=== PATIENT | female | born 1985 | race Caucasian/White ===

== ENCOUNTER → 2016-05-07 | Outpatient (CLI) | payer BC ==
--- NOTE | 2016-05-07 21:34 | REP ---
Clinical: Anatomical evaluation. Comparison: 04/09/2016 . Findings: Examination demonstrates a single live intrauterine in cephalic presentation. motion is identified by technologist. Placenta is noted anteriorly and grade 0 without evidence for placenta previa or abruption. Amniotic fluid volume is normal. Cervix measures 4.9 cm in length and appears closed. No evidence for nuchal cord. Gestational age by LMP 24 weeks 0 days with PEDRO 08/27/2016 . Gestational age by current measurements 23 weeks 6 days with PEDRO 08/28/2016 . FHR equals 153 of beats per minute. Estimated weight 716 grams ( 63rd of percentile). Anatomical assessment demonstrates normal structures including cranium, choroid plexus, cavum, cerebellum/posterior fossa, facial features, lungs, four-chamber heart/ventricular outflow tracts, diaphragm, stomach, cord insertion/three-vessel cord, kidneys/bladder, and extremities. Limited evaluation of the spine again noted. Impression: Single live intrauterine in cephalic presentation demonstrating appropriate interval growth. Incomplete evaluation of the spine again noted. Remainder of the anatomical assessment is complete and normal. Signed by Reji Hawk MD 05/07/2016 09:25 P
== END ==
LOC: M SMT 14:54
PROVIDERS: ATTEND Advanced Practice Midwife
DX: Z34.82 Encounter for supervision of other normal pregnancy, second trimester (principal)

== ENCOUNTER → 2016-05-18 | Outpatient (CLI) | payer BC ==
--- NOTE | 2016-05-18 13:51 | REP ---
OB ULTRASOUND: Real-time sonographic evaluation of the gravid uterus is performed. There is a single living intrauterine gestation with an estimated gestational age of 25 weeks 4 days, EDC 08/27/2016. Today's measurement indicate appropriate growth. Biometry and Growth: BPD 64 mm = 25 weeks 5 days, 62nd percentile HC 235 mm = 25 weeks 4 days, 50th percentile AC 207 mm = 25 weeks 2 days, 43rd percentile FL 48 mm = 26 weeks 0 days, 59th percentile HC/AC ratio 1.14 within normal range. Estimated weight 827 grams, 42nd percentile. SEEN/GROSSLY UNREMARKABLE Lateral ventricles No Posterior fossa Yes Upper lip Yes Four-chamber heart No LVOT No RVOT No Stomach Yes Cord insertion Yes Three vessel cord Yes Kidneys Yes Bladder Yes Spine Yes Cervical length: Closed and measures 5.2 cm in length. heart rate: 169 beats per minute. position: Vertex. Placenta: Posterior and grade 1 with no previa or abruption. Amniotic fluid: Within normal limits. Nuchal cord cannot be excluded. Signed by Paramjit Thapa MD 05/18/2016 04:28 P
== END ==
LOC: M RAD 10:21
PROVIDERS: ATTEND Obstetrics & Gynecology
DX: Z34.82 Encounter for supervision of other normal pregnancy, second trimester (principal)

== ENCOUNTER → 2016-05-21 | Outpatient (CLI) | payer BC ==
--- NOTE | 2016-05-21 15:23 | REP ---
Left upper quadrant ultrasound: History: Left upper quadrant pain. 26 weeks . Findings: Scanning in the left upper quadrant of the abdomen demonstrates normal sized homogeneous spleen. This measures 12.1 x 11.6 x 5.7 cm. No splenic lesion is seen. There is no evidence of ascites. A normal left kidney is seen measuring 11.4 x 6.9 x 5.1 cm. No hydronephrosis is seen. heart rate is documented at 152 beats per minute during this exam. Impression: Negative left upper quadrant sonogram. No splenic or left renal abnormality. Signed by Cale Yan MD 05/21/2016 04:47 P
== END ==
LOC: M RAD 14:37
PROVIDERS: ATTEND Specialist
DX: R16.1 Splenomegaly, not elsewhere classified (principal)

== ENCOUNTER → 2016-05-25 | Outpatient (CLI) | payer BC ==
[2016-05-25 13:37] LABS: MEAN CORPUSCULAR HEMOGLOBIN 29.8 pg (27.0-33.0); MEAN CORPUSCULAR HGB CONC 33.3 g/dl (32.0-36.5); MEAN CORPUSCULAR VOLUME 89.3 fl (80.0-96.0); RED CELL DISTRIBUTION WIDTH 13.1 % (11.5-14.5); WHITE BLOOD COUNT 11.5 K/mm3 (4.0-10.0)
== END ==
LOC: M WUC 09:24
PROVIDERS: ATTEND Obstetrics & Gynecology
DX: Z34.82 Encounter for supervision of other normal pregnancy, second trimester (principal)

== ENCOUNTER → 2016-08-02 | Outpatient (REF) | payer BC | LOC: M LAB REF 12:00 | PROVIDERS: ATTEND Advanced Practice Midwife | DX: Z34.83 Encounter for supervision of other normal pregnancy, third trimester (principal) ==

== ENCOUNTER 2016-08-15 16:21 | Inpatient (IN) | payer BC ==
[~2016-08-15] VITALS: Ht 162.6 cm; Wt 117.0 kg
[2016-08-15 17:20] VITALS: BP 146/85
[2016-08-15] MEDS ORDERED: AMPICILLIN SOD 2 GM in D5W MINI-BAG PLUS 100 ML IV STA (17:37)
[2016-08-15 17:38] VITALS: BP 126/73
[2016-08-15] MEDS ORDERED: miSOPROStol 50 MCG 1/2 TAB (S0191) PO SCH (17:45)
[2016-08-15 17:53] VITALS: BP 132/75
[2016-08-15 18:33] LABS: MEAN CORPUSCULAR HEMOGLOBIN 26.7 pg (27.0-33.0); MEAN CORPUSCULAR HGB CONC 33.4 g/dl (32.0-36.5); MEAN CORPUSCULAR VOLUME 79.8 fl (80.0-96.0); WHITE BLOOD COUNT 12.2 K/mm3 (4.0-10.0)
[2016-08-15 18:39] VITALS: BP 140/79
[2016-08-15 18:55] LABS: ALT/SGPT 17 U/L (12-78); AST/SGOT 17 U/L (15-37); BILIRUBIN,TOTAL 0.6 MG/DL (0.2-1.0); CREATININE FOR GFR 0.57 MG/DL (0.55-1.02); GLOMERULAR FILTRATION RATE > 60.0 (>60); URIC ACID 2.8 MG/DL (2.6-6.0)
[2016-08-15] MEDS ORDERED: LR 1,000 ML IV SCH (22:10)
[2016-08-15] MEDS ORDERED: OXYTOCIN DRIP 30 UNITS in APPROPRIATE DILUENT 1 EA IV SCH (22:50)
[2016-08-15] MEDS ORDERED: FENTANYL 2MCG/ML ROPIVACAINE 0.2% IN 0.9% NACL 200ML IVBAG As Ordered ONE (23:36)
[2016-08-16] VITALS (29 sets, daily range): BP systolic 121–159; BP diastolic 58–83
[2016-08-16] MEDS ORDERED: REFRIGERATOR IV KEYS XX PRN (00:30)
[2016-08-16] MEDS ORDERED: EPIDURAL COMMENT XX SCH (00:30)
[2016-08-16] MEDS ORDERED: NALOXONE INJ 0.4 MG/1 ML VIAL (J2310) IV PRN (00:30)
[2016-08-16] MEDS ORDERED: ePHEDrine SULFATE 25 MG/5 ML(5MG/ML) SYRINGE IV PRN (00:30)
[2016-08-16] MEDS ORDERED: ONDANSETRON 4MG/2ML VIAL (J2405) IV PRN ×2 (00:30→13:45)
[2016-08-16] MEDS ORDERED: FENTANYL/ROPIVACAINE/NACL BAG 200 ML EPIDURAL SCH (00:30)
[2016-08-16] MEDS ORDERED: diphenhydrAMINE INJ 50MG/ML VIAL (J1200) IV PRN (00:30)
[2016-08-16] MEDS ORDERED: EPIDURAL/PCA KEYS XX PRN (00:30)
--- NOTE | 2016-08-16 00:44 | HPE ---
DATE OF ADMISSION: 08/15/2016 REASON FOR ADMISSION: Induction of labor for gestational hypertension. HISTORY OF PRESENT ILLNESS: Mrs. Huitron is a 31-year-old, 2, para 1 who presented at 38 weeks 2 days estimated gestational age by last menstrual period confirmed by first-trimester ultrasound for induction of labor. Mrs. Huitron initially presented to routine appointment this afternoon and was noted to have elevated blood pressure with serial repeat. Initial blood pressure was 152/88 followed by several blood pressures of 140s over 80s to 90s. She was sent to labor and delivery for further evaluation, at which time she continued to have elevated blood pressures and met diagnosis for gestational hypertension. She denied any persistent headaches, abdominal pain, or visual changes along with vaginal bleeding, leakage of fluid, or regular-pattern contractions. Her course had otherwise been uncomplicated. She initiated care in the first trimester and has been appropriate throughout. PAST MEDICAL HISTORY: None. PAST SURGICAL HISTORY: None. PAST OBSTETRICAL HISTORY: She is a 2, para 1. She has had one vaginal delivery, proven to 8 pounds. That was complicated also with gestational hypertension. MEDICATIONS: Include vitamins. ALLERGIES: She has no known drug allergies. SOCIAL HISTORY: Denies any alcohol, tobacco, or drug use during her . PHYSICAL EXAMINATION: VITAL SIGNS: Blood pressure 146/85. She is afebrile. She has a category 1 heart rate tracing. GENERAL APPEARANCE: Is well appearing in no acute distress. LUNGS: Clear to auscultation bilaterally. CARDIOVASCULAR: Heart regular rate and rhythm. ABDOMEN: Soft, gravid, nontender. Estimated weight (EFW) 3600 grams. Her cervical exam: She was 4 cm dilated, 50% effaced, -3 station. LABORATORY DATA: Blood type is A positive. Antibody screen is negative. Rubella is immune. RPR is nonreactive. Hepatitis surface antigen is negative. HIV is negative. Hepatitis C was nonreactive. Chlamydia and gonorrhea screens were negative. She has a normal 1-hour Glucola of 144. She is group B streptococcus (GBS) positive. ASSESSMENT: 1. Mrs. Huitron is a 31-year-old, 2, para 1, at 38 weeks 2 days estimated gestational age with gestational hypertension. 2. Reassuring status. 3. Group B streptococcus (GBS) positive. PLAN: 1. Admit to labor and delivery. Complete blood count (CBC), rapid plasma reagin (RPR), and type and screen, pre-eclamptic panel. 2. Patient thoroughly counseled in regard to her diagnosis. Have discussed management options as well as plan for induction of labor. I discussed medications as well as procedures used in labor and delivery. She has also been verbally consented for emergency surgery, blood products, and anesthesia. After discussion, the couple has decided to proceed with admission, plan of care. 3. Will initiate her induction with 50 mcg of oral misoprostol. 4. Antibiotics for GBS-positive status.
[2016-08-16] MEDS: AMPICILLIN SOD 1 GM in D5W MINI-BAG PLUS 50 ML IV SCH ×2 (07:18→11:18)
[2016-08-16] MEDS ORDERED: ACETAMINOPHEN 500 MG TAB PO PRN (07:45)
[2016-08-16] MEDS: PRENATAL VITAMIN TAB PO SCH (09:00)
[2016-08-16] MEDS ORDERED: OXYTOCIN DRIP 30 UNITS in APPROPRIATE DILUENT 1 EA IV ONE (13:45)
[2016-08-16] MEDS ORDERED: MEASLES,MUMPS,RUBELLA VACCINE INJ (MMR-II) (90707) SC SCH (13:45)
[2016-08-16] MEDS ORDERED: RHOGAM 300 MCG (1500 IU) INJ (J2790) IM SCH (13:45)
[2016-08-16] MEDS ORDERED: DIBUCAINE 1% OINTMENT 30GM TOP PRN (13:45)
[2016-08-16] MEDS ORDERED: METHYLERGONOVINE MALEATE 0.2 MG TAB PO PRN (13:45)
--- NOTE | 2016-08-16 14:19 | DN ---
DATE: 08/16/2016 PREDELIVERY DIAGNOSIS: 38 plus weeks, labor. POSTDELIVERY DIAGNOSIS: Delivered. PROCEDURE: Spontaneous vaginal delivery. COKE BURNER: Dr. Hari Mchugh. ANESTHESIA: Epidural. ESTIMATED BLOOD LOSS: 500 mL. FINDINGS: An 8 pound, 13 ounce male infant with scores of 8 and 9. DELIVERY SUMMARY: After a short second stage consisting of one push, the patient had spontaneous delivery of an 8 pound, 13 ounce male with scores 8 and 9 under epidural anesthesia. There was no nuchal cord. The shoulders delivered with ease. Infant cried spontaneously and was handed to the mother. The cord was double clamped and cut. After a 45-minute third stage, the placenta was still not delivered and manual extraction of the placenta was performed without difficulty. The placenta was inspected and appeared to be intact. The patient received IV pitocin immediately after delivery of the placenta. A second-degree perineal laceration was repaired with 3-0 chromic in the usual fashion. Sponge and needle counts were correct.
[2016-08-16] MEDS: IBUPROFEN 600 MG TAB PO PRN (14:48)
[2016-08-16] MEDS: ACETAMINOPHEN 500 MG TAB PO PRN (19:45)
[2016-08-16] MEDS: DOCUSATE SODIUM 100 MG CAP PO PRN (19:45)
[2016-08-17 01:00] VITALS: BP 130/68
[2016-08-17] MEDS: IBUPROFEN 600 MG TAB PO PRN ×3 (02:33→19:58)
[2016-08-17 05:54] VITALS: BP 113/66
[2016-08-17] MEDS: PRENATAL VITAMIN TAB PO SCH (08:45)
[2016-08-17 18:20] VITALS: BP 145/71
[2016-08-17] MEDS: ACETAMINOPHEN 500 MG TAB PO PRN (23:06)
[2016-08-17] MEDS: DOCUSATE SODIUM 100 MG CAP PO PRN (23:12)
[2016-08-18] MEDS: IBUPROFEN 600 MG TAB PO PRN (06:26)
[2016-08-18 07:03] VITALS: BP 135/90
[2016-08-18] MEDS: PRENATAL VITAMIN TAB PO SCH (09:33)
[2016-08-18] MEDS: ACETAMINOPHEN 500 MG TAB PO PRN (09:34)
[2016-08-18] MEDS ORDERED: PRENTAB9 PO (12:30)
[2016-08-18] MEDS ORDERED: IBUP-1114 PO (12:30)
[2016-08-18] MEDS ORDERED: ACET50TA PO (12:30)
== END 2016-08-18 15:00 | disposition home or self-care (01) | DRG 560 ==
LOC: M LDI 16:21 → M OBS 08-16 15:08
PROVIDERS: ADMIT Obstetrics & Gynecology; ATTEND Obstetrics & Gynecology
PROC: 3E0D7GC Introduction of Other Therapeutic Substance into Mouth and Pharynx, Via Natural or Artificial Opening (ICD-10-PCS; 2016-08-15)
PROC: 10E0XZZ Delivery of Products of Conception, External Approach (ICD-10-PCS; principal; 2016-08-16)
PROC: 0KQM0ZZ Repair Perineum Muscle, Open Approach (ICD-10-PCS; 2016-08-16)
PROC: 10907ZC Drainage of Amniotic Fluid, Therapeutic from Products of Conception, Via Natural or Artificial Opening (ICD-10-PCS; 2016-08-16)
DX: O13.4 Gestational [pregnancy-induced] hypertension without significant proteinuria, complicating childbirth (principal); O99.824 Streptococcus B carrier state complicating childbirth; Z37.0 Single live birth; Z3A.38 38 weeks gestation of pregnancy; Z79.899 Other long term (current) drug therapy; O70.1 Second degree perineal laceration during delivery

== ENCOUNTER → 2016-09-12 | Outpatient (CLI) | payer BC ==
[~2016-09-12] MED LIST: ACET50TA PO; IBUP-1114 PO; PRENTAB9 PO
[2016-09-12 18:36] LABS: BASO % 0.5 % (0.0-1.0); EOS # 0.2 K/mm3 (0.0-0.50); EOS % 1.8 % (0.0-3.0); LARGE UNSTAINED CELL # 0.2 K/mm3 (0.0-0.4); LARGE UNSTAINED CELL % 2.6 % (0.0-4.0); LYMPH % 29.8 % (24.0-44.0); MEAN CORPUSCULAR HGB CONC 31.1 g/dl (32.0-36.5); MEAN CORPUSCULAR VOLUME 80.5 fl (80.0-96.0); MONO # 0.6 K/mm3 (0.0-0.8); MONO % 6.9 % (0.0-5.0); NEUTROPHILS # 5.4 K/mm3 (1.8-7.7); NEUTROPHILS % 58.4 % (36.0-66.0); PLATELET COUNT, AUTOMATED 336 k/mm3 (150-450); RED CELL DISTRIBUTION WIDTH 15.4 % (11.5-14.5)
[2016-09-12 18:49] LABS: ALBUMIN 3.8 GM/DL (3.2-5.2); ALBUMIN/GLOBULIN RATIO 0.95 (1.00-1.93); BILIRUBIN,DIRECT 0.2 MG/DL (0.0-0.2); BILIRUBIN,TOTAL 0.8 MG/DL (0.2-1.0); TOTAL PROTEIN 7.8 GM/DL (6.4-8.2)
[2016-09-13 15:34] LABS: WHITE BLOOD COUNT 9.2 K/mm3 (4.0-10.0)
== END ==
LOC: M SMT 14:44
PROVIDERS: ATTEND Specialist
DX: K80.00 Calculus of gallbladder with acute cholecystitis without obstruction (principal)

== ENCOUNTER → 2016-09-13 | Outpatient (CLI) | payer BC ==
--- NOTE | 2016-09-13 08:40 | REP ---
Clinical: Cholelithiasis. Technique: Real time keyes scale ultrasound examination using curved array transducer. Findings: Liver and pancreas are relatively normal in contour, size, echogenicity. Incidental note is made of a 1 cm hemangioma in the right lobe of the liver. The gallbladder demonstrates multiple gallstones without wall thickening or pericholecystic fluid. However a positive sonographic Garcia's sign was elicited. No evidence for biliary ductal dilatation and the common bile duct measures 5.9 mm diameter. The right kidney is normal in reniform shape without hydronephrosis and measures 11.6 x 5.8 x 4.2 cm. No ascites. Impression: 1. Cholelithiasis with sonographic Garcia's sign. No biliary ductal dilatation. Clinical correlation is recommended. 2. 1 cm hepatic hemangioma. Signed by Reji Hawk MD 09/13/2016 08:32 A
== END ==
LOC: M RAD 07:16
PROVIDERS: ATTEND Specialist
DX: K80.00 Calculus of gallbladder with acute cholecystitis without obstruction (principal); D18.00 Hemangioma unspecified site

== ENCOUNTER 2016-09-29 03:02 | Observation (INO) | payer BC ==
[~2016-09-29] VITALS: Ht 162.6 cm; Wt 99.3 kg
[2016-09-29] MEDS ORDERED: NS 1,000 ML IV ONE ×2 (03:30→06:30)
[2016-09-29 04:53] LABS: BASO % 0.5 % (0.0-1.0); EOS % 0.5 % (0.0-3.0); LARGE UNSTAINED CELL # 0.1 K/mm3 (0.0-0.4); LARGE UNSTAINED CELL % 1.8 % (0.0-4.0); LYMPH # 1.1 K/mm3 (1.5-4.5); LYMPH % 14.2 % (24.0-44.0); MEAN CORPUSCULAR HEMOGLOBIN 24.8 pg (27.0-33.0); MEAN CORPUSCULAR HGB CONC 31.4 g/dl (32.0-36.5); MONO # 0.5 K/mm3 (0.0-0.8); MONO % 6.1 % (0.0-5.0); NEUTROPHILS # 6.1 K/mm3 (1.8-7.7); NEUTROPHILS % 76.9 % (36.0-66.0); PLATELET COUNT, AUTOMATED 292 k/mm3 (150-450)
[2016-09-29] MEDS ORDERED: MORPHINE 4 MG/ML 1ML SYRINGE IV ONE (05:15)
[2016-09-29 06:08] LABS: ALBUMIN 3.4 GM/DL (3.2-5.2); ALKALINE PHOSPHATASE 139 U/L (45-117); ALT/SGPT 276 U/L (12-78); AMYLASE 1011 U/L (25-115); ANION GAP 9 MEQ/L (8-16); AST/SGOT 360 U/L (15-37); BILIRUBIN,DIRECT 1.1 MG/DL (0.0-0.2); BILIRUBIN,TOTAL 2.4 MG/DL (0.2-1.0); BLOOD UREA NITROGEN 12 MG/DL (7-18); CALCIUM LEVEL 8.3 MG/DL (8.5-10.1); CARBON DIOXIDE LEVEL 26 MEQ/L (21-32); CHLORIDE LEVEL 107 MEQ/L (98-107); CREATININE FOR GFR 0.79 MG/DL (0.55-1.02); GLOMERULAR FILTRATION RATE > 60.0 (>60); GLUCOSE, FASTING 91 MG/DL (70-105); POTASSIUM SERUM 3.9 MEQ/L (3.5-5.1); SODIUM LEVEL 142 MEQ/L (136-145); TOTAL PROTEIN 6.8 GM/DL (6.4-8.2)
--- NOTE | 2016-09-29 07:20 | REPUSA ---
CLINICAL HISTORY: Abdominal pain. TECHNIQUE: Realtime sonographic images were obtained in multiple projections. COMMENTS: The liver is of normal size. 1.3x1.1 cm hyperechoic lesion of the right hepatic lobe. There is no intra or extrahepatic biliary ductal dilatation. CBD measures 5.1 mm. The gallbladder is underdistended with evidence of calculi. There is no pericholecystic fluid. Minimal thickening of the wall of the gallbladder measuring 3.1 mm. There is no abdominal ascites. The right kidney measures 12.1x5.6x4.3 cm , free of hydronephrosis. IMPRESSION: Minimal apparent thickening of the underdistended gallbladder. Cholelithiasis. No evidence of acute cholecystitis. Hyperechoic lesion of the right hepatic lobe. Possibly hemangioma. Thank you for your kind referral of this patient.
[2016-09-29] MEDS ORDERED: KETOROLAC 30 MG/ML VIAL (J1885) IV PRN ×2 (09:15)
[2016-09-29] MEDS ORDERED: PROMETHAZINE INJ 25 MG/ML VIAL (J2550) IV PRN (09:15)
[2016-09-29] MEDS ORDERED: MORPHINE 4 MG/ML 1ML SYRINGE IV PRN (09:15)
[2016-09-29] MEDS ORDERED: METOCLOPRAMIDE INJ 10MG/2ML VIAL (J2765) IV PRN (09:15)
[2016-09-29] MEDS ORDERED: zolPIDEM TARTRATE 10MG TAB PO PRN (09:15)
[2016-09-29] MEDS ORDERED: MORPHINE 2 MG/ML 1ML SYRINGE IV PRN (09:15)
[2016-09-29] MEDS: PANTOPRAZOLE 40MG TAB (PROTONIX) PO SCH (09:33)
[2016-09-29] MEDS: LR 1,000 ML IV SCH ×2 (09:33→20:09)
[2016-09-29] MEDS: ONDANSETRON 4MG/2ML VIAL (J2405) IV PRN ×2 (09:39→18:09)
[2016-09-29 11:00] VITALS: BP 137/97
--- NOTE | 2016-09-29 12:01 | HPE ---
DATE OF ADMISSION: 09/29/2016 CHIEF COMPLAINT: Gallstone pancreatitis. HISTORY OF PRESENT ILLNESS: The patient is a 31-year-old female who was in to see Dr. Aguirre for gallstones and planned for a laparoscopic cholecystectomy later on this week. She has had pain in the right upper quadrant radiating to her back and classic biliary colic type symptoms over the last 4 weeks and she is now. More importantly, over the last 12 hours prior to admission, she developed severe epigastric pain and also right upper quadrant pain that was persistent and brought her to the emergency room in the middle of the night. When she was given a shot of pain medication, she had significant improvement of her pain. She has not had any acholic stools or bilirubinuria and when they checked her LFTs all elevated as well as are amylase, lipase elevated. This was consistent with gallstone pancreatitis. They contacted me after performing an ultrasound for admission. PAST MEDICAL HISTORY: Significant for history of gallstones. History of vaginal delivery. MEDICATIONS: Recently added were Tylenol and ibuprofen. PHYSICAL EXAMINATION: Reveals a 31-year-old female who looks stated age. HEENT: Reveals an atraumatic, normocephalic head with extraocular movements intact. Pupils are equal and reactive to light. Sclerae nonicteric. Oropharynx clear without exudate or lesions. NECK: Supple without adenopathy. LUNGS: Clear to auscultation without crackles, wheezes or rhonchi. HEART: Regular without murmur. ABDOMEN: Soft, mildly tender to deep palpation in the epigastric area. However, no guarding and no rebound is appreciated. IMPRESSION AND PLAN: Patient has elevated liver function tests, elevated amylase, lipase all consistent with acute cholecystitis. My recommendation at this time is to admit her for IV fluids, IV antibiotics, make her n.p.o. and we will get some followup labs in the morning. Depending on how her labs and her symptoms change, if she has significant improvement over the next 24 hours, possibly discharged to home with outpatient lap cholecystectomy on Saturday as previously scheduled would be reasonable, although if that is not the case, then we will keep her admitted and plan on operative intervention over the early part of this week.
[2016-09-29 16:00] VITALS: BP 138/81
[2016-09-29] MEDS ORDERED: ACETAMINOPHEN TAB 650MG DOSE (2X325MG) PO PRN (18:00)
[2016-09-29 20:00] VITALS: BP 133/76
[2016-09-30] VITALS: BP 131/81
[2016-09-30 04:15] VITALS: BP 130/87
[2016-09-30 06:46] LABS: MEAN CORPUSCULAR HEMOGLOBIN 25.6 pg (27.0-33.0); MEAN CORPUSCULAR HGB CONC 32.3 g/dl (32.0-36.5); MEAN CORPUSCULAR VOLUME 79.2 fl (80.0-96.0); RED CELL DISTRIBUTION WIDTH 16.2 % (11.5-14.5)
[2016-09-30 07:17] LABS: ALBUMIN 3.3 GM/DL (3.2-5.2); ALBUMIN/GLOBULIN RATIO 0.89 (1.00-1.93); ALKALINE PHOSPHATASE 165 U/L (45-117); ALT/SGPT 287 U/L (12-78); ANION GAP 7 MEQ/L (8-16); AST/SGOT 187 U/L (15-37); BILIRUBIN,TOTAL 1.5 MG/DL (0.2-1.0); BLOOD UREA NITROGEN 5 MG/DL (7-18); CALCIUM LEVEL 9.1 MG/DL (8.5-10.1); CARBON DIOXIDE LEVEL 30 MEQ/L (21-32); CHLORIDE LEVEL 105 MEQ/L (98-107); CREATININE FOR GFR 0.88 MG/DL (0.55-1.02); GLOMERULAR FILTRATION RATE > 60.0 (>60); GLUCOSE, FASTING 99 MG/DL (70-105); POTASSIUM SERUM 3.8 MEQ/L (3.5-5.1); SODIUM LEVEL 142 MEQ/L (136-145)
[2016-09-30 08:40] VITALS: BP 127/85
[2016-09-30] MEDS: PANTOPRAZOLE 40MG TAB (PROTONIX) PO SCH (08:43)
== END 2016-09-30 11:05 | disposition home or self-care (01) ==
LOC: M ED 07:06 → M ED INP 09:04 → M PED 10:20
PROVIDERS: ADMIT Surgery; ATTEND Surgery
DX: K85.10 Biliary acute pancreatitis without necrosis or infection (principal)
CPT/HCPCS: 36415; 76705; 80048; 80053; 80076; 82150; 83690; 85025; 85027; 96361; 96374; 96375; 96376; 99284; J2405; J2765

== ENCOUNTER → 2016-10-03 | Day surgery (SDC) | payer BC ==
[~2016-10-03] VITALS: Ht 162.6 cm; Wt 99.3 kg
[~2016-10-03] MED LIST changes: +BUPIVACAINE/EPIN 0.25% 30 ML VIAL As Ordered ONE; +GLYCOPYRROLATE INJ 0.2 MG/ML 2 ML VIAL As Ordered ONE; +KETOROLAC 60 MG/2 ML VIAL (J1885) As Ordered ONE; +LR 1,000 ML IV ONE; +LR 1,000 ML IV SCH; +METOCLOPRAMIDE INJ 10MG/2ML VIAL (J2765) As Ordered ONE; +METOCLOPRAMIDE INJ 10MG/2ML VIAL (J2765) IV ONE; +MIDAZOLAM INJ 2 MG/2 ML VIAL (J2250) As Ordered ONE; +MORPHINE 2 MG/ML 1ML SYRINGE IV PRN; +NEOSTIGMINE 1MG/ML 5 ML SYRINGE (J2710) As Ordered ONE; +NORCO, ANEXSIA 5/325MG TABLET (HYDROcodone/ACETAMINOPHEN) PO PRN; +ONDANSETRON 4MG/2ML VIAL (J2405) As Ordered ONE; +ONDANSETRON 4MG/2ML VIAL (J2405) IV PRN; +PERCOCET 5MG/325MG TAB PO PRN; +dexameTHASONE 4 MG/ML 1ML VIAL (J1100) As Ordered ONE; +ePHEDrine SULFATE 25 MG/5 ML(5MG/ML) SYRINGE As Ordered ONE; +fentaNYL 100 MCG/2 ML INJECTION (J3010) As Ordered ONE
[2016-10-03 12:07] LABS: CONTROL LINE UCG INT CTR LINE PRESENT
[2016-10-03] MEDS: fentaNYL 100 MCG/2 ML INJECTION (J3010) IV PRN ×4 (14:01→14:16)
[2016-10-03 16:20] VITALS: BP 158/75
--- NOTE | 2016-10-04 18:55 | RO ---
DATE OF PROCEDURE: 10/03/2016 PREOPERATIVE DIAGNOSIS: Symptomatic cholelithiasis. POSTOPERATIVE DIAGNOSIS: Symptomatic cholelithiasis. PROCEDURE: Laparoscopic cholecystectomy. SURGEON: Dr. Paramjit Aguirre TAMPER OPERATOR: None. ANESTHESIA: General. ESTIMATED BLOOD LOSS: 5 mL. COMPLICATIONS: None. INDICATIONS FOR PROCEDURE: The patient is a 31-year-old female who presents with right upper quadrant abdominal pain radiating around to the right side that she has had since her last . She is currently 6 weeks . She has been having persistent pain. She was seen in the hospital over this past weekend with gallstone pancreatitis. Recommendation was to proceed with laparoscopic, possible open cholecystectomy. Risks and benefits of the procedure not limited to but including bleeding, infection, hernia formation, damage to surrounding structures and need for further surgery were discussed in detail with the patient, informed consent was obtained and procedure was planned. DESCRIPTION OF PROCEDURE: Patient brought back to operating room four after sufficient sedation and was sterilely prepped and draped. Next, a time-out was done to confirm proper patient and proper procedure. Following that, a stab incision was made in left upper quadrant at Rubio's point. Veress needle was inserted and the abdomen was insufflated to 15 mmHg. Prior to Veress needle being removed, 5 mm incision was made supraumbilically. A 5 mm Optiview port was used to gain access to the abdomen. Once the abdomen was entered, the Veress needle site was examined. There were no signs of injury. Veress needle was then removed. A 10 mm port was placed subxiphoid, two 5 mm ports in the right upper quadrant. Fundus of the gallbladder was grasped, elevated up towards the right shoulder. Cystic duct and cystic artery were both then dissected free using blunt dissection. Once they were both clearly identified, they were both doubly clipped and cut. The gallbladder was then removed from the gallbladder fossa using electrocautery, brought out through the subxiphoid port site using a 10 mm Endo Catch bag. The right upper quadrant was examined. There were no signs of any bleeding. The abdomen was then desufflated. Skin incisions were closed with #4-0 Vicryl subcuticular sutures. The abdomen was cleaned and dried. Steri-Strips, 4x4 and tape were applied, thus ending procedure. Edited 10/03/2016
== END | disposition home or self-care (01) ==
LOC: M SDC 10:28
PROVIDERS: ATTEND Surgery
DX: K80.20 Calculus of gallbladder without cholecystitis without obstruction (principal)
CPT/HCPCS: 47562; 84703; 88304; J0690; J1100; J1885; J2250; J2405; J2710; J2765; J3010

== ENCOUNTER → 2018-09-05 | Outpatient (CLI) | payer BC ==
[~2018-09-05] MED LIST changes: -ACET50TA PO; -BUPIVACAINE/EPIN 0.25% 30 ML VIAL As Ordered ONE; -GLYCOPYRROLATE INJ 0.2 MG/ML 2 ML VIAL As Ordered ONE; -KETOROLAC 60 MG/2 ML VIAL (J1885) As Ordered ONE; -LR 1,000 ML IV ONE; -LR 1,000 ML IV SCH; +MAPA500T2 PO; -METOCLOPRAMIDE INJ 10MG/2ML VIAL (J2765) As Ordered ONE; -METOCLOPRAMIDE INJ 10MG/2ML VIAL (J2765) IV ONE; -MIDAZOLAM INJ 2 MG/2 ML VIAL (J2250) As Ordered ONE; -MORPHINE 2 MG/ML 1ML SYRINGE IV PRN; -NEOSTIGMINE 1MG/ML 5 ML SYRINGE (J2710) As Ordered ONE; -NORCO, ANEXSIA 5/325MG TABLET (HYDROcodone/ACETAMINOPHEN) PO PRN; -ONDANSETRON 4MG/2ML VIAL (J2405) As Ordered ONE; -ONDANSETRON 4MG/2ML VIAL (J2405) IV PRN; -PERCOCET 5MG/325MG TAB PO PRN; -dexameTHASONE 4 MG/ML 1ML VIAL (J1100) As Ordered ONE; -ePHEDrine SULFATE 25 MG/5 ML(5MG/ML) SYRINGE As Ordered ONE; -fentaNYL 100 MCG/2 ML INJECTION (J3010) As Ordered ONE
[2018-09-05 13:51] LABS: BASO % 0.3 % (0.0-1.0); EOS # 0.1 10^3/uL (0.0-0.50); HEMATOCRIT 41.2 % (36.0-47.0); HEMOGLOBIN 13.6 g/dl (12.0-15.5); LYMPH % 28.4 % (24.0-44.0); MEAN CORPUSCULAR HEMOGLOBIN 29.6 pg (27.0-33.0); MEAN CORPUSCULAR VOLUME 89.8 fl (80.0-96.0); MONO # 0.6 10^3/uL (0.0-0.8); MONO % 8.7 % (0.0-5.0); NEUTROPHILS # 4.3 10^3/uL (1.8-7.7); NEUTROPHILS % 60.3 % (36.0-66.0); PLATELET COUNT, AUTOMATED 291 10^3/uL (150-450); RED BLOOD COUNT 4.59 10^6/uL (4.00-5.40); WHITE BLOOD COUNT 7.1 10^3/uL (4.0-10.0)
[2018-09-05 14:28] LABS: FOLLICLE STIMULATING HORMONE 4.9 mIU/mL; FREE T4 1.08 NG/DL (0.76-1.46); PROLACTIN 7.2 NG/ML; THYROID STIMULATING HORMONE 0.959 uIU/ML (0.358-3.740)
== END ==
LOC: M SMT 10:14
PROVIDERS: ATTEND Specialist
DX: N93.8 Other specified abnormal uterine and vaginal bleeding (principal)

== ENCOUNTER → 2018-10-20 | Outpatient (REF) | payer BC ==
[2018-10-22 14:34] LABS: HPV HYBRID CAPTURE II Negative (Negative)
== END ==
LOC: M LAB REF 18:23
PROVIDERS: ATTEND Specialist
DX: Z12.4 Encounter for screening for malignant neoplasm of cervix (principal)
CPT/HCPCS: 87624; G0123

== ENCOUNTER → 2019-05-27 | Outpatient (REF) | payer BC ==
[2019-05-27 22:48] LABS: INFLUENZA A AMPLIFICATION NEGATIVE (NEGATIVE); INFLUENZA B AMPLIFICATION POSITIVE (NEGATIVE)
== END ==
LOC: M LAB REF 21:15
PROVIDERS: ATTEND Physician Assistant
DX: J02.9 Acute pharyngitis, unspecified (principal)

== ENCOUNTER → 2020-07-06 | Outpatient (REF) | payer BC | LOC: M SFHCWAGY 12:39 | PROVIDERS: ATTEND Nurse Practitioner Family | DX: N89.8 Other specified noninflammatory disorders of vagina (principal) ==

== ENCOUNTER → 2020-08-19 | Outpatient (REF) | payer BC ==
[2020-08-19 17:52] LABS: BASO # 0.1 10^3/uL (0.0-0.2); BASO % 0.7 % (0.0-1.0); EOS # 0.2 10^3/uL (0.0-0.5); EOS % 2.2 % (0.0-3.0); HEMATOCRIT 44.1 % (36.0-47.0); HEMOGLOBIN 14.1 g/dl (12.0-15.5); LYMPH # 2.2 10^3/uL (1.5-5.0); LYMPH % 27.7 % (24.0-44.0); MEAN CORPUSCULAR VOLUME 90.6 fl (80.0-96.0); MONO # 0.7 10^3/uL (0.0-0.8); MONO % 8.4 % (2.0-8.0); NEUTROPHILS # 4.9 10^3/uL (1.5-8.5); NEUTROPHILS % 60.3 % (36.0-66.0); PLATELET COUNT, AUTOMATED 333 10^3/uL (150-450); RED BLOOD COUNT 4.87 10^6/uL (4.00-5.40); WHITE BLOOD COUNT 8.1 10^3/uL (4.0-10.0)
[2020-08-19 18:12] LABS: ALBUMIN 3.9 GM/DL (3.2-5.2); ALT/SGPT 26 U/L (12-78); BILIRUBIN,TOTAL 0.7 MG/DL (0.2-1.0); BLOOD UREA NITROGEN 11 MG/DL (7-18); CALCIUM LEVEL 9.2 MG/DL (8.5-10.1); CARBON DIOXIDE LEVEL 30 MEQ/L (21-32); CHLORIDE LEVEL 107 MEQ/L (98-107); CHOLESTEROL LEVEL 206 MG/DL (<200); CREATININE FOR GFR 0.65 MG/DL (0.55-1.30); GLOMERULAR FILTRATION RATE > 60.0 (>60); GLUCOSE, FASTING 81 MG/DL (70-100); HDL CHOLESTEROL 40 MG/DL (>40); LDL CHOLESTEROL 112 MG/DL (<100); LIPASE 122 U/L (73-393); NON-HDL-C 166 MG/DL; POTASSIUM SERUM 4.6 MEQ/L (3.5-5.1); SODIUM LEVEL 140 MEQ/L (136-145); THYROID STIMULATING HORMONE 0.916 uIU/ML (0.358-3.740); TOTAL PROTEIN 7.8 GM/DL (6.4-8.2); TRIGLYCERIDES LEVEL 272 MG/DL (<150)
[2020-08-19 18:14] LABS: VITAMIN B12 LEVEL 545 PG/ML (247-911)
[2020-08-19 18:26] LABS: TOTAL 25(OH) VITAMIN D 13.2 NG/ML (30.0-100.0)
[2020-08-19 18:54] LABS: HEPATITIS C VIRUS ABY INDEX < 0.0 INDEX (<0.8); HIV 1&2 SCREEN CENTAUR NEGATIVE (NEGATIVE)
== END ==
LOC: M LAB REF 16:43
PROVIDERS: ATTEND Pediatrics
DX: Z11.3 Encounter for screening for infections with a predominantly sexual mode of transmission (principal)

== ENCOUNTER → 2020-11-11 | Outpatient (CLI) | payer BC ==
[~2020-11-11] MED LIST changes: +BUPR150T12; +ONDA8TAB8; +PANT40TA29; +RIZA10TA58; +SUMA100T2
--- NOTE | 2020-11-11 08:14 | REP ---
INDICATION: ABD PAIN. COMPARISON: Comparison sonography is from September 29, 2016.. TECHNIQUE: Right upper quadrant ultrasound. FINDINGS: Scanning through the right upper quadrant demonstrates evidence of a fatty infiltration of the liver with increased echogenicity. There is a 1 cm cyst in the left lobe of the liver. The previous study identified a slightly hyperechoic area in the right lobe of the liver cyst suggestive of hemangioma. This is not visible today. No liver mass lesion is observed. No pancreatic abnormality is seen. The gallbladder surgically absent. Common bile duct is normal measuring 0.6 cm in greatest diameter. There is no evidence of ascites or right renal abnormality. The right kidney measures 11.6 x 5.0 x 4.3 cm. IMPRESSION: Small cyst left lobe of the liver. Mild fatty infiltration of the liver. Otherwise negative right upper quadrant sonography post cholecystectomy. <Electronically signed by Bossman Yan > 11/11/20 0811
== END ==
LOC: M RAD 06:20
PROVIDERS: ATTEND Physician Assistant Medical
DX: R10.10 Upper abdominal pain, unspecified (principal); K76.89 Other specified diseases of liver; K76.0 Fatty (change of) liver, not elsewhere classified; Z90.49 Acquired absence of other specified parts of digestive tract

== ENCOUNTER → 2020-11-21 | Outpatient (CLI) | payer BC | LOC: M LABSMTC 10:57 | PROVIDERS: ATTEND Anesthesiology | DX: Z01.812 Encounter for preprocedural laboratory examination (principal); Z20.828 Contact with and (suspected) exposure to other viral communicable diseases ==

== ENCOUNTER → 2021-01-09 | Outpatient (CLI) | payer BC | LOC: M LABSMTC 09:55 | PROVIDERS: ATTEND Anesthesiology | DX: Z01.812 Encounter for preprocedural laboratory examination (principal); Z20.822 Contact with and (suspected) exposure to COVID-19 ==

== ENCOUNTER 2021-01-13 10:24 | Day surgery (SDC) | payer BC ==
[~2021-01-13] VITALS: Ht 162.6 cm; Wt 108.4 kg
[~2021-01-13 10:24] MED LIST changes: +NS 1,000 ML IV ONE
[2021-01-13] MEDS ORDERED: LIDOCAINE 2% 100MG/5ML SDV (FOR ANES.) As Ordered ONE (10:38)
[2021-01-13] MEDS ORDERED: propofoL 500 MG/50 ML VIAL As Ordered ONE (10:38)
--- NOTE | 2021-01-13 13:16 | ROOR ---
Patient Name: Sia Huitron Procedure Date: 01/13/2021 12:40 PM Date of : 1985 Age: 35 Room: [facility] Gender: Female Note Status: Finalized Procedure: Upper GI endoscopy Indications: Epigastric abdominal pain, Suspected gastro-esophageal reflux disease Providers: Suresh Mena MD Referring MD: Chantal ALEGRIA MD Requesting Provider: Medicines: Monitored Anesthesia Care Complications: No immediate complications. Procedure: Pre-Anesthesia Assessment: - Prior to the procedure, a History and Physical was performed, and patient medications and allergies were reviewed. The patient is competent. The risks and benefits of the procedure and the sedation options and risks were discussed with the patient. All questions were answered and informed consent was obtained. Patient identification and proposed procedure were verified by the physician, the nurse and the anesthesiologist in the procedure room. Mental Status Examination: alert and oriented. Airway Examination: normal oropharyngeal airway and neck mobility. Respiratory Examination: clear to auscultation. CV Examination: normal. Prophylactic Antibiotics: The patient does not require prophylactic antibiotics. Prior Anticoagulants: The patient has taken no previous anticoagulant or antiplatelet agents. ASA Grade Assessment: II - A patient with mild systemic disease. After reviewing the risks and benefits, the patient was deemed in satisfactory condition to undergo the procedure. The anesthesia plan was to use monitored anesthesia care (MAC). Immediately prior to administration of medications, the patient was re-assessed for adequacy to receive sedatives. The heart rate, respiratory rate, oxygen saturations, blood pressure, adequacy of pulmonary ventilation, and response to care were monitored throughout the procedure. The physical status of the patient was re-assessed after the procedure. The Endoscope was introduced through the mouth, and advanced to the second part of duodenum. The upper GI endoscopy was accomplished without difficulty. The patient tolerated the procedure well. Findings: The examined esophagus was normal. The Z-line was regular and was found 40 cm from the incisors. Scattered moderate inflammation characterized by erythema and granularity was found in the gastric body and in the gastric antrum. Biopsies were taken with a cold forceps for Helicobacter pylori testing. Verification of patient identification for the specimen was done by the physician and nurse using the patient's name, date and medical record number. Estimated blood loss was minimal. The duodenal bulb and second portion of the duodenum were normal. Biopsies for histology were taken with a cold forceps for evaluation of celiac disease. Impression: - Normal esophagus. - Z-line regular, 40 cm from the incisors. - Gastritis. Biopsied. - Normal duodenal bulb and second portion of the duodenum. Biopsied. Recommendation: - Patient has a contact number available for emergencies. The signs and symptoms of potential delayed complications were discussed with the patient. Return to normal activities tomorrow. Written discharge instructions were provided to the patient. - High fiber diet. - Continue present medications. - Await pathology results. - Follow an antireflux regimen. - Telephone GI clinic for pathology results in 2 weeks. - Return to GI clinic if persistent symptoms or new symptoms. - Return to primary care physician. Procedure Code(s): --- Professional --- 53174, Esophagogastroduodenoscopy, flexible, transoral; with biopsy, single or multiple Diagnosis Code(s): --- Professional --- K29.70, Gastritis, unspecified, without bleeding R10.13, Epigastric pain CPT copyright 2019 [employer]. All rights reserved. The codes documented in this report are preliminary and upon coroner review may be revised to meet current compliance requirements. Suresh Mena MD Suresh Mena MD 01/13/2021 1:15:32 PM Electronically signed by Suresh Mena MD Number of Addenda: 0 Note Initiated On: 01/13/2021 12:40 PM Estimated Blood Loss: Estimated blood loss was minimal.
--- NOTE | 2021-01-13 13:19 | ROOR ---
Patient Name: Sia Huitron Procedure Date: 01/13/2021 12:40 PM Date of : 1985 Age: 35 Room: [facility] Gender: Female Note Status: Finalized Procedure: Colonoscopy Indications: Change in bowel habits Providers: Suresh Mena MD Referring MD: Chantal ALEGRIA MD Requesting Provider: Medicines: Monitored Anesthesia Care Complications: No immediate complications. Procedure: Pre-Anesthesia Assessment: - Prior to the procedure, a History and Physical was performed, and patient medications and allergies were reviewed. The patient is competent. The risks and benefits of the procedure and the sedation options and risks were discussed with the patient. All questions were answered and informed consent was obtained. Patient identification and proposed procedure were verified by the physician, the nurse and the anesthesiologist in the procedure room. Mental Status Examination: alert and oriented. Airway Examination: normal oropharyngeal airway and neck mobility. Respiratory Examination: clear to auscultation. CV Examination: normal. Prophylactic Antibiotics: The patient does not require prophylactic antibiotics. Prior Anticoagulants: The patient has taken no previous anticoagulant or antiplatelet agents. ASA Grade Assessment: II - A patient with mild systemic disease. After reviewing the risks and benefits, the patient was deemed in satisfactory condition to undergo the procedure. The anesthesia plan was to use monitored anesthesia care (MAC). Immediately prior to administration of medications, the patient was re-assessed for adequacy to receive sedatives. The heart rate, respiratory rate, oxygen saturations, blood pressure, adequacy of pulmonary ventilation, and response to care were monitored throughout the procedure. The physical status of the patient was re-assessed after the procedure. The Colonoscope was introduced through the anus and advanced to the terminal ileum, with identification of the appendiceal orifice and IC valve. The colonoscopy was performed without difficulty. The patient tolerated the procedure well. The quality of the bowel preparation was good. The terminal ileum, ileocecal valve, appendiceal orifice, and rectum were photographed. Scope insertion time was 2 minutes. Scope withdrawal time was 9 minutes. The total duration of the procedure was 12 minutes. Findings: The perianal and digital rectal examinations were normal. The terminal ileum appeared normal. Normal mucosa was found in the entire colon. Biopsies for histology were taken with a cold forceps from the right colon, left colon, transverse colon and rectosigmoid colon for evaluation of microscopic colitis. Verification of patient identification for the specimen was done by the physician and nurse using the patient's name, date and medical record number. Estimated blood loss was minimal. Non-bleeding external and internal hemorrhoids were found during retroflexion. The hemorrhoids were medium-sized. Impression: - The examined portion of the ileum was normal. - Normal mucosa in the entire examined colon. Biopsied. - Non-bleeding external and internal hemorrhoids. Recommendation: - Patient has a contact number available for emergencies. The signs and symptoms of potential delayed complications were discussed with the patient. Return to normal activities tomorrow. Written discharge instructions were provided to the patient. - High fiber diet. - Continue present medications. - Await pathology results. - Repeat colonoscopy in 10 years for screening purposes. - Telephone GI clinic for pathology results in 2 weeks. - Return to GI clinic if persistent symptoms or new symptoms. - Return to primary care physician. Procedure Code(s): --- Professional --- 38480, Colonoscopy, flexible; with biopsy, single or multiple Diagnosis Code(s): --- Professional --- K64.8, Other hemorrhoids R19.4, Change in bowel habit CPT copyright 2019 [employer]. All rights reserved. The codes documented in this report are preliminary and upon dental internship review may be revised to meet current compliance requirements. Suresh Mena MD Suresh Mena MD 01/13/2021 1:18:54 PM Electronically signed by Suresh Mena MD Number of Addenda: 0 Note Initiated On: 01/13/2021 12:40 PM Estimated Blood Loss: Estimated blood loss: none.
[2021-01-13 13:35] VITALS: BP 135/78
== END 2021-01-13 13:45 | disposition home or self-care (01) ==
LOC: M OPP 10:24
PROVIDERS: ATTEND Internal Medicine Gastroenterology
DX: R19.4 Change in bowel habit (principal); K64.8 Other hemorrhoids; K29.70 Gastritis, unspecified, without bleeding; R10.13 Epigastric pain; Z79.899 Other long term (current) drug therapy

== ENCOUNTER → 2021-08-17 | Outpatient (CLI) | payer BC ==
[~2021-08-17] MED LIST changes: -NS 1,000 ML IV ONE
== END ==
LOC: M WHC 13:27
PROVIDERS: ATTEND Advanced Practice Midwife
DX: N64.4 Mastodynia (principal)

== ENCOUNTER → 2021-09-27 | Outpatient (REF) | payer BC ==
[2021-09-27 19:19] LABS: HEMOGLOBIN A1c 5.2 %
[2021-09-27 19:34] LABS: CHOLESTEROL RISK RATIO 5.382 (<5); THYROID STIMULATING HORMONE 1.18 uIU/ML (0.358-3.740)
[2021-09-27 21:43] LABS: TOTAL 25(OH) VITAMIN D 47.8 NG/ML (30.0-100.0)
== END ==
LOC: M LAB REF 18:21
PROVIDERS: ATTEND Pediatrics
DX: E78.5 Hyperlipidemia, unspecified (principal); Z68.38 Body mass index [BMI] 38.0-38.9, adult; E88.1 Lipodystrophy, not elsewhere classified; E55.9 Vitamin D deficiency, unspecified

== ENCOUNTER → 2022-05-09 | Outpatient (REF) | payer BC | LOC: M LAB REF 16:29 | PROVIDERS: ATTEND Nurse Practitioner Family | DX: R07.0 Pain in throat (principal) ==

== ENCOUNTER → 2022-09-12 | Outpatient (REF) | payer BC ==
[2022-09-12 18:20] LABS: BASO # 0.1 10^3/uL (0.0-0.2); BASO % 0.5 % (0.0-1.0); EOS # 0.2 10^3/uL (0.0-0.5); EOS % 2.2 % (0.0-3.0); HEMATOCRIT 40.8 % (36.0-47.0); HEMOGLOBIN 13.2 g/dl (12.0-15.5); LYMPH # 1.7 10^3/uL (1.5-5.0); LYMPH % 18.6 % (24.0-44.0); MEAN CORPUSCULAR HEMOGLOBIN 28.4 pg (27.0-33.0); MEAN CORPUSCULAR HGB CONC 32.4 g/dl (32.0-36.5); MEAN CORPUSCULAR VOLUME 87.9 fl (80.0-96.0); MONO # 0.9 10^3/uL (0.0-0.8); MONO % 9.3 % (2.0-8.0); NEUTROPHILS # 6.5 10^3/uL (1.5-8.5); NEUTROPHILS % 69.1 % (36.0-66.0); PLATELET COUNT, AUTOMATED 295 10^3/uL (150-450); RED BLOOD COUNT 4.64 10^6/uL (4.00-5.40); WHITE BLOOD COUNT 9.4 10^3/uL (4.0-10.0)
[2022-09-12 18:37] LABS: ALBUMIN 4.1 G/DL (3.2-5.2); ALKALINE PHOSPHATASE 57 U/L (46-116); ALT/SGPT 21 U/L (7.0-40); AST/SGOT 17 U/L (<34); BILIRUBIN,TOTAL 0.7 MG/DL (0.3-1.2); BLOOD UREA NITROGEN 13 MG/DL (9-23); CALCIUM LEVEL 9.2 MG/DL (8.5-10.1); CARBON DIOXIDE LEVEL 26 MMOL/L (20-31); CHLORIDE LEVEL 105 MMOL/L (98-107); CHOLESTEROL LEVEL 207 MG/DL (<200); CHOLESTEROL RISK RATIO 5.09 (<5); GLOMERULAR FILTRATION RATE > 60.0 (>60); GLUCOSE, FASTING 81 MG/DL (60-100); HDL CHOLESTEROL 40.6 MG/DL (>40); LDL CHOLESTEROL 129.6 MG/DL (<100); NON-HDL-C 166.4 MG/DL; POTASSIUM SERUM 4.9 MMOL/L (3.5-5.1); SODIUM LEVEL 137 MMOL/L (136-145); TOTAL PROTEIN 7.2 G/DL (5.7-8.2); TRIGLYCERIDES LEVEL 184 MG/DL (<150)
[2022-09-12 18:38] LABS: THYROID STIMULATING HORMONE 1.479 uIU/ML (0.55-4.78)
[2022-09-12 18:48] LABS: HEMOGLOBIN A1c 5.2 % (4.0-6.0)
== END ==
LOC: M LAB REF 17:10
PROVIDERS: ATTEND Pediatrics
DX: E66.01 Morbid (severe) obesity due to excess calories (principal); E78.5 Hyperlipidemia, unspecified

== ENCOUNTER 2023-07-24 12:39 | Emergency (ER) | payer BC, OTHER ==
[~2023-07-24] VITALS: Ht 162.6 cm; Wt 118.2 kg
[2023-07-24] MEDS ORDERED: METF-838 (12:52)
[2023-07-24] MEDS ORDERED: LOSA100T46 (12:52)
[2023-07-24] MEDS ORDERED: ISOVUE-370 76% 100ML VIAL As Ordered ONE (13:56)
[2023-07-24] MEDS ORDERED: NAPR-837 PO (16:18)
[2023-07-24 16:45] VITALS: BP 124/68; TEMP 96.4; O2SAT 98
== END 2023-07-24 17:03 | disposition home or self-care (01) ==
LOC: M ED 12:39 → EDBD 12:39 → M ED 17:03
DX: H93.12 Tinnitus, left ear (principal); M75.22 Bicipital tendinitis, left shoulder; M54.2 Cervicalgia; I10 Essential (primary) hypertension; K21.9 Gastro-esophageal reflux disease without esophagitis; Z79.899 Other long term (current) drug therapy
CPT/HCPCS: 70450; 70496; 70498; 73030; 80047; 84702; 99284; Q9967

== ENCOUNTER → 2023-08-02 | Outpatient (REF) | payer OTHER ==
[~2023-08-02] MED LIST changes: +LOSA100T46; +METF-838; +NAPR-837 PO
[2023-08-02 12:33] LABS: BASO # 0.1 10^3/uL (0.0-0.2); BASO % 0.8 % (0.0-1.0); EOS # 0.2 10^3/uL (0.0-0.5); EOS % 2.3 % (0.0-3.0); HEMOGLOBIN 12.3 g/dl (12.0-15.5); LYMPH # 2.1 10^3/uL (1.5-5.0); LYMPH % 25.2 % (24.0-44.0); MEAN CORPUSCULAR HGB CONC 32.4 g/dl (32.0-36.5); MEAN CORPUSCULAR VOLUME 86.6 fl (80.0-96.0); MONO # 0.7 10^3/uL (0.0-0.8); NEUTROPHILS # 5.3 10^3/uL (1.5-8.5); NEUTROPHILS % 63.1 % (36.0-66.0); PLATELET COUNT, AUTOMATED 323 10^3/uL (150-450); RED BLOOD COUNT 4.39 10^6/uL (4.00-5.40); WHITE BLOOD COUNT 8.3 10^3/uL (4.0-10.0)
[2023-08-02 12:52] LABS: ERYTHROCYTE SEDIMENTATION RATE 30 mm/hr (0-20)
== END ==
LOC: M LAB REF 11:30
PROVIDERS: ATTEND Pediatrics
DX: M54.2 Cervicalgia (principal)

== ENCOUNTER → 2023-08-26 | Outpatient (REF) | payer OTHER ==
[2023-08-26 18:33] LABS: CHOLESTEROL RISK RATIO 5.59 (<5); HDL CHOLESTEROL 35.2 MG/DL (>40); LDL CHOLESTEROL 113.8 MG/DL (<100); NON-HDL-C 161.8 MG/DL
== END ==
LOC: M LAB REF 17:13
PROVIDERS: ATTEND Pediatrics
DX: E78.5 Hyperlipidemia, unspecified (principal); E88.819 Insulin resistance, unspecified

== ENCOUNTER → 2023-12-17 | Outpatient (REF) | payer OTHER ==
[~2023-12-17] MED LIST changes: +ONDA-284; -ONDA8TAB8
== END ==
LOC: M SFHCPLAZ 12:51
PROVIDERS: ATTEND Family Medicine
DX: Z12.4 Encounter for screening for malignant neoplasm of cervix (principal)

== ENCOUNTER → 2024-01-16 | Outpatient (CLI) | payer OTHER ==
[~2024-01-16] MED LIST changes: +PROHANCE 279.3MG/ML 15ML VIAL ONE; +PROHANCE 279.3MG/ML 5ML VIAL ONE
== END ==
LOC: M PLAIMG 13:50
PROVIDERS: ATTEND Physician Assistant
DX: H93.12 Tinnitus, left ear (principal)
CPT/HCPCS: 70553; A9576